=== PATIENT | female | born 1980 | race Caucasian/White ===

== ENCOUNTER 2016-11-22 15:41 | Emergency (ER) | payer OTHER ==
[2016-11-22 15:49] VITALS: BP 124/70; PULSE 88; RESP 18; TEMP 97.6
[2016-11-22] MEDS ORDERED: IBUPROFEN 600 MG TAB PO STA (16:01)
--- NOTE | 2016-11-22 16:08 | ED ---
Lower Extremity Injury HPI - General Chief Complaint: Extremity Injury, Lower Stated Complaint: left leg injury Time Seen by Provider: 11/22/16 15:51 Source: patient, RN notes reviewed Mode of arrival: wheelchair Limitations: no limitations - History of Present Illness Initial Comments: Patient is a 36-year-old female presents to the emergency room for evaluation of left ankle pain. Patient states about an hour ago she was stepping out on her porch and twisted her ankle and fell onto her left knee. Patient states she felt a snap on the lateral portion of her ankle. Patient states she's having 7 out of 10 constant pain. Patient states the pain is worsen or she presses over the area or tries to put weight on her left leg. Patient denies taking anything for pain. Patient states she noticed swelling on the lateral portion of her ankle. Patient denies any previous injuries to her ankle. Patient denies knee pain. Patient states she has an abrasion of her left knee. Patient denies any other injuries during incident. - Related Data Previous Rx's Medication Instructions Recorded traMADol HCl [Ultram] 50 mg PO Q4H PRN #12 tab 11/22/16 Allergies Allergy/AdvReac Type Severity Reaction Status Date / Time codeine AdvReac Unknown Verified 11/22/16 15:49 Review of Systems ROS Statement: Those systems with pertinent positive or pertinent negative responses have been documented in the HPI. ROS Other: All systems not noted in ROS Statement are negative. Past Medical History Past Medical History: No Reported History History of Any Multi-Drug Resistant Organisms: None Reported Past Surgical History: No Surgical Hx Reported Past Psychological History: No Psychological Hx Reported Smoking Status: Never smoker Past Alcohol Use History: None Reported Past Drug Use History: None Reported General Exam - General Exam Comments Initial Comments: Sitting in wheelchair, no acute distress. Limitations: no limitations (Sitting in wheelchair, no acute distress.) General appearance: alert, in no apparent distress Head exam: Present: atraumatic, normocephalic, normal inspection Eye exam: Present: normal appearance Pupils: Present: normal accommodation ENT exam: Present: normal exam Neck exam: Present: normal inspection Respiratory exam: Absent: respiratory distress Left Knee exam: Present: abrasion Lower Leg exam: Present: full ROM, tenderness (Tenderness on palpating over lateral mid and distal lower leg) Ankle exam: Present: tenderness (Lateral malleolus). Absent: full ROM (Limited flexion and extension secondary to pain) Foot/Toe exam: Absent: tenderness Neurovascular tendon exam: Present: no vascular compromise. Absent: pulse deficit (2+ dorsal pedal and posterior tibial pulses), abnormal cap refill ( Capillary refill less than 2 seconds) Gait: unable to bear weight Back exam: Present: normal inspection Neurological exam: Present: alert, oriented X3, CN II-XII intact Psychiatric exam: Present: normal affect, normal mood Skin exam: Present: warm, dry, intact, normal color. Absent: rash Course Vital Signs 11/22/16 15:45 Temperature 97.6 F Pulse Rate 88 Respiratory 18 Rate Blood Pressure 124/70 O2 Sat by Pulse 99 Oximetry Procedures - Orthopedic Splinting/Casting Injury #1 Side: left Lower Extremity Injury Location: ankle Lower Extremity Immobilizer: posterior splint (Short leg OCL posterior splint placed. 3 x 35 inches. Neurovascular function assesed and intact.) Other Orthopedic Equipment: crutches Medical Decision Making - Medical Decision Making Patient is a 36-year-old female presents to the emergency room for evaluation of left ankle pain. Left ankle x-ray significant for distal lateral malleolus fracture. Patient placed in OCL splint and advised follow-up with pst specialist. Patient given crutches. Patient states she understands everything that was discussed with her. Return parameters discussed. Case discussed with Dr. Childers. - Radiology Data Radiology results: report reviewed, image reviewed Disposition Clinical Impression: Fracture of distal end of left fibula Disposition: HOME SELF-CARE Condition: Good Instructions: Ankle Fracture (ED) Additional Instructions: Rest, elevate and ice on and off for 10-15 minutes for the next 24-48 hours. Take Tylenol or Motrin as needed for pain. Do not get splint wet. Do not remove splint until follow-up with pst specialist. Please follow-up with pst specialist in 24-48 hours. If new symptoms develop or symptoms worsen, please return to the ER. Prescriptions: traMADol HCl [Ultram] 50 mg PO Q4H PRN #12 tab PRN Reason: Pain Referrals: Keyur Hernández MD [STAFF PHYSICIAN] - 1-2 days Time of Disposition: 16:34
--- NOTE | 2016-11-22 16:19 | XR ---
EXAMINATION TYPE: XR ankle complete LT, XR foot complete LT DATE OF EXAM ORDERED: 11/22/2016 HISTORY: Pain. COMPARISON: None. FINDINGS: There is soft tissue swelling adjacent to the lateral malleolus. There is a minimally displaced fracture of the distal fibular metaphysis. No definite tibial fracture is seen. Osseous structures about the foot are normal. No fracture or dislocation is seen. IMPRESSION: 1. MILDLY DISPLACED FRACTURE OF THE DISTAL LEFT FIBULAR DIAMETAPHYSIS. 2. NORMAL LEFT FOOT.
--- NOTE | 2016-11-22 16:20 | XR ---
EXAMINATION TYPE: XR tibia fibula LT DATE OF EXAM ORDERED: 11/22/2016 HISTORY: Pain. COMPARISON: None. FINDINGS: Minimally displaced fracture of the distal left fibula is again identified. No other fract ure is seen. IMPRESSION: MINIMALLY DISPLACED FRACTURE OF THE DISTAL LEFT FIBULAR DIAMETAPHYSIS. CODE A: INITIAL ENCOUNTER FOR CLOSED FRACTURE
== END 2016-11-22 16:40 | disposition home or self-care (01) ==
LOC: EC 15:41
DX: S82.832A Other fracture of upper and lower end of left fibula, initial encounter for closed fracture (principal); Z88.5 Allergy status to narcotic agent; W50.2XXA Accidental twist by another person, initial encounter
CPT/HCPCS: 29515; 99283

== ENCOUNTER 2016-12-02 08:41 | Day surgery (SDC) | payer SELFPAY ==
[2016-11-30 12:29] VITALS: BMI 32.7
[~2016-12-02 08:41] MED LIST: DEXAMETHASONE SOD PHOSPHATE 10 MG/ML 1 ML VIAL IV ONE; LIDOCAINE 1% 20 ML VIAL (10MG/ML) FOR IV START INTRADERMA PRN; MIDAZOLAM 2 MG/2 ML VIAL IV PRN; SCOPOLAMINE 1.5MG/72HR PATCH TRANSDERM ONE; ceFAZolin 2 GM in SODIUM CHLORIDE 0.9% 100 ML IVPB ONE
[2016-12-02 09:13] VITALS: RESP 16
[2016-12-02] MEDS: LACTATED RINGERS 1,000 ML IV SCH ×2 (09:28→13:53)
[2016-12-02] MEDS: ONDANSETRON 4 MG/2 ML VIAL IVP ONE ×2 (09:35→12:30)
[2016-12-02] MEDS ORDERED: HYDROcodone/APAP 5-325MG 1 EACH TAB PO PRN ×2 (10:12)
[2016-12-02] MEDS ORDERED: HYDROmorphone 1 MG/ML 1 ML SYRINGE IVP PRN ×2 (10:12)
[2016-12-02] MEDS ORDERED: PROPOFOL 10 MG/ML 20 ML VIAL IV ONE (10:55)
[2016-12-02] MEDS ORDERED: ePHEDrine 50 MG/ML 1 ML AMP ONE (10:55)
[2016-12-02] MEDS ORDERED: ROPIVACAINE 5 MG/ML 30 ML VIAL ONE (10:55)
[2016-12-02] MEDS ORDERED: SUCCINYLCHOLINE CHLORIDE 100 MG/5 ML SYR IV ONE (10:55)
[2016-12-02] MEDS ORDERED: LIDOCAINE 1% INJ 10MG/ML (20 ML MDV) ONE (10:55)
[2016-12-02] MEDS ORDERED: fentaNYL (PF) 50 MCG/ML 2 ML AMP ONE (10:55)
[2016-12-02] MEDS ORDERED: LACTATED RINGERS 1,000 ML IV ONE (11:26)
[2016-12-02] MEDS ORDERED: ceFAZolin 1,000 MG in SODIUM CHLORIDE 0.9% 1,000 ML IRRIGATION ONE (11:27)
--- NOTE | 2016-12-02 12:13 | XR ---
Limited left ankle HISTORY: Fracture Intraoperative C-arm images document the procedure.
[2016-12-02 12:21] VITALS: TEMP 98.4
--- NOTE | 2016-12-02 12:27 | P.OP ---
Date of Procedure: 12/02/16 Preoperative Diagnosis: Left bimalleolar equivalent ankle fracture Postoperative Diagnosis: Same Procedure(s) Performed: 1. Open reduction internal fixation of left lateral malleolus fracture 2. Manual application of joint stress by physician for radiography, left ankle Implants: Anesthesia: GETA Surgeon: Catalino Swanson Estimated Blood Loss (ml): 10 IV fluids (ml): 1,100 Pathology: none sent Condition: stable Disposition: PACU Indications for Procedure: The patient is a previously healthy 36-year-old female who sustained a fall resulting in a closed left ankle fracture. She was seen in the office where stress x-rays showed displacement of the lateral malleolus and widening of the medial clear space. Due to the instability of her fracture pattern I recommended operative fixation. We discussed the potential risks and complication of surgery in the office including but not limited to risk of anesthesia, risk of superficial infection, risk of deep infection, risk of damage to local nerves resulting in Her permanent numbness, risk of fracture malunion, risk of fracture nonunion, risk of intraoperative fracture, risk of postoperative fracture, risk of postoperative displacement requiring further surgery, risk of symptomatically hardware, risk of chronic pain, risk of chronic swelling, risk of failure to regain preinjury level of function, risk of posttraumatic arthritis, and possibly loss of life or limb. We also discussed the possibility of postoperative medical problems including DVT and PE. The patient understands these potential risks and provided her verbal and written consent to go forward with surgery. Operative Findings: Description of Procedure: The patient was identified in preoperative holding and the correct left leg was marked with my initials. All the patient's questions were answered. She was brought back to the operating room after a popliteal block was placed in preoperative holding. She was positioned on the operating room table and a general anesthetic and preoperative antibiotics were administered. A tourniquet was applied to the proximal aspect of the left thigh. A bone foam bump was placed under her left leg internally rotating the leg. A ramp was placed under her left leg. The left leg was then prepped and draped in the standard sterile fashion. Prior to starting surgery timeout was performed identifying the correct patient, operative extremity, and procedure. The patient's leg was then elevated, exsanguinated with an Esmarch bandage, and the tourniquet was inflated to 250 mmHg. A longitudinal incision centered over the distal aspect of the lateral malleolus was marked out with a skin marker. Skin incision was made a 15 blade scalpel and dissection was carried down carefully through the subcutaneous tissue to the periosteum overlying the fibula. Large branch of the superficial peroneal nerve was identified proximally in the incision and was carefully retracted. The periosteum and fascia was incised longitudinally in line with the skin incision exposing the distal fibula. A distal fibula fracture was identified. There was a long posterior spike. The fracture site was gently irrigated and debrided of early callus and consolidating hematoma. Once the fracture site at then prepared a gentle longitudinal closed reduction was performed and the fracture was clamped with a [id number] reduction clamp. The reduction was verified clinically and the fracture appeared to anatomically cooney into place. C-arm was brought in and showed the fracture was out to length and the medial clear space was closed down. I then proceeded to place a fully threaded 2.7 mm lag screw across the fracture distally. A 2.7 mm drill bit was used to create a gliding hole in the anterior cortex the proximal fragment and a 2.0 mm drill bit was used to create a threaded hole in the posterior cortex the distal fragment. A fully threaded 2.7 mm screw was placed across the fracture generating excellent compression. I then placed a 10 hole one third tubular plate over the lateral aspect of the fibula to use as a neutralization construct. I elected to use a long 10 hole plate due to the long spike posteriorly. A 3.5 screw was placed in the hole just proximal to the end of the fracture bringing the plate down to bone. I then placed a 3.5 mm screw in the most proximal hole of the plate. I then placed 2 cancellus 4.0 mm screws in the distal holes of the plate. I placed a final 3.5 mm screw in the second proximal hole of the plate. C-arm was brought in and a mortise view show that the fibula fracture was anatomically reduced and out to length. There was no widening of the medial clear space. I then performed a manual external rotation stress under fluoroscopy. With application of external rotation to the ankle there was no widening of the medial clear space or incisura. I interpreted this as a stable fracture not requiring syndesmotic screw. I then took a final lateral x-ray. The wound was then copiously irrigated with sterile saline. The deep fascia was closed with a running 0 Vicryl stitch. The subcu was reapproximated using 2 -0 Vicryl. The skin was closed using 3-0 nylon horizontal mattress stitches. The tourniquet was let down for total tourniquet time of 39 minutes. The skin was cleansed and Brown quarter and stretchy Steri-Strips were placed between the stitches. I then verified that all instrument, sponge and sharp counts were correct. A sterile dressing consisting of Betadine soaked Adaptic, 4 x 4, web roll was applied. A well-padded bulky Cao splint was applied. The patient was then transferred to the [facility], her anesthetic was reversed, and she was brought to PACU having found the procedure well. Plan: The patient can discharge home as an outpatient. She is to remain strictly nonweightbearing on her left leg. She is given a prescription for pain medication and Colace. I would also like her to be treated with aspirin pin and 25 mg twice a day for 6 weeks while she is nonweightbearing to help lower her risk of having a DVT or PE.
[2016-12-02] MEDS: HYDROmorphone 1 MG/ML 1 ML SYRINGE IVP PRN ×3 (12:30→12:41)
--- NOTE | 2016-12-02 12:30 | FL ---
Fluoroscopy HISTORY: Fracture 24 seconds fluoroscopy time supplied to the referring clinician. 3 intraoperative C-arm images docum ent the procedure. See dictated report from orthopedic surgery.
--- NOTE | 2016-12-02 13:09 | P.ONQ ---
Anesthesiology Proc Note - PNB - Peripheral Nerve Block Performed Left Popliteal Single Time Out Performed: Yes Indication: Acute Post-Operative Pain, Requested by physician Sedation Type: Sedate with meaningful contact maintained Preparation: Sterile Prep Catheter: None Needle Size: 50mm (2") Needle Gauge: 21 Technique: Ultrasound Injectate: Other (see comment) (ropi .5% 20cc) Blood Aspirated: No Pain Paresthesia on Injection Noted: No Resistance on Injection: Normal Events: Uneventful and Well Tolerated
[2016-12-02] MEDS ORDERED: METOCLOPRAMIDE 5 MG/ML 2 ML VIAL IVP ONE (13:17)
[2016-12-02 14:52] VITALS: BP 107/71; PULSE 77
[2016-12-03] MEDS ORDERED: ENOXAPARIN 40 MG/0.4 ML SYRINGE SQ SCH (09:00)
== END 2016-12-02 15:24 | disposition home or self-care (01) ==
LOC: OR 08:41
PROVIDERS: ATTEND Orthopaedic Surgery
DX: S82.62XA Displaced fracture of lateral malleolus of left fibula, initial encounter for closed fracture (principal); K21.9 Gastro-esophageal reflux disease without esophagitis; Z88.5 Allergy status to narcotic agent; Z79.891 Long term (current) use of opiate analgesic; W19.XXXA Unspecified fall, initial encounter
CPT/HCPCS: 81025; 73600; 27792; C1713; J1100; J2765; J0690 ×2; J2405; J2001; J3010; J1170; J2795; J0330; J2704